=== PATIENT | female | born 1935 | race Caucasian/White ===

== ENCOUNTER → 2016-08-27 | Outpatient (CLI) | payer MEDICARE ==
--- NOTE | 2016-08-27 13:11 | Diagnostic Imaging Report ---
EXAMINATION: CT abdomen and pelvis without contrast dated 08/27/2016. TECHNIQUE: Multiple contiguous axial images were obtained through the abdomen and pelvis without the use of intravenous contrast. INDICATION: Question diverticulitis. Left lower quadrant pain with known history of enlarged kidney on the left. COMPARISON: None. FINDINGS: There is mild thickening of the wall of the distal sigmoid to the rectosigmoid. This could be due to underdistention. True wall thickening due to a mild colitis is not excluded, but no adjacent inflammation or free air is appreciated. More proximally, the sigmoid colon demonstrates diffuse diverticular disease but without changes of acute diverticulitis. There is no free air or free fluid. No abscess formation appreciated. Diverticular disease is also noted throughout the transverse colon and right colon without inflammation in the surrounding soft tissues. The appendix is not visualized, but no inflammation is seen about the cecum. The nonopacified abdominal viscera limited due to lack of contrast but no gross acute abnormality is appreciated involving the liver or spleen. The spleen does contain multiple granulomata consistent with old granulomatous disease. The left kidney demonstrates diffuse cortical thinning and atrophy with multiple internal cystic changes difficult to characterize without contrast. The left renal pelvis is prominent; however, more distally, the left ureter is normal in caliber with no obstructive process appreciated. Right renal pelvis is also prominent in appearance. A nonobstructive stone in the right kidney is noted. Cystic changes along the inferior pole of the right kidney also noted and nonspecific in nature. The gallbladder is grossly unremarkable. The pancreas is unremarkable as well. The adrenal glands appear normal. There is diffuse atherosclerotic disease along the course of the aorta. The osseous structures demonstrate no evidence for acute abnormalities. 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 The visualized lung bases demonstrate mild emphysematous changes. IMPRESSION: 1. Chronic changes as described above with limitations due to lack of contrast. The small cystic changes in the kidneys could be better characterized sonographically or with pre and post contrast imaging if patient is able on a nonemergent basis. 2. Diffuse diverticular disease throughout the colon without evidence for acute diverticulitis at this time. Minimal wall thickening of the rectosigmoid is noted which could be due to underdistention or due to a focal distal segment colitis, correlate with symptoms. No adjacent free air or free fluid. Other incidental findings as discussed above. Dictated by: Dictated on workstation # [id number]
== END ==
LOC: RAD 11:04
PROVIDERS: ATTEND Family Medicine
DX: K57.32 Diverticulitis of large intestine without perforation or abscess without bleeding (principal); R10.32 Left lower quadrant pain
CPT/HCPCS: 74176